=== PATIENT | male | born 1960 | race Caucasian/White ===

== ENCOUNTER 2017-07-14 15:34 | Emergency (ER) | payer BC, OTHER ==
[2017-07-14] MEDS ORDERED: HYDROmorphone 1 MG/ML Syringe IM ONE (16:37)
[2017-07-14] MEDS ORDERED: HYDROmorphone 1 MG/ML Syringe ONE (16:39)
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
--- NOTE | 2017-07-16 09:10 | CR ---
Tibia Fibula Lt HISTORY: injury FINDINGS: The fibula demonstrates a comminuted fracture of the diaphysis at about the junction of the mid and distal thirds. There are displaced fragments and mild overall lateral displacement with slig ht lateral angulation. There is accompanying transverse fracture of the diaphysis of the left tibia. This is displaced posterior laterally approximately 1 cm with slight lateral angulation. There is als o nondisplaced spiral fracture of the proximal to mid diaphysis left tibia. IMPRESSION: Acute fractures left tibia and fibula as above.
== END 2017-07-14 17:20 | disposition other institution (70) ==
LOC: JP.ED 15:34
DX: S82.452A Displaced comminuted fracture of shaft of left fibula, initial encounter for closed fracture (principal); S82.222A Displaced transverse fracture of shaft of left tibia, initial encounter for closed fracture; I10 Essential (primary) hypertension; Z87.891 Personal history of nicotine dependence; W17.89XA Other fall from one level to another, initial encounter
CPT/HCPCS: 29505; 73590; 96374; 99284; J1170

== ENCOUNTER 2020-10-13 22:36 | Emergency (ER) | payer BC, OTHER ==
[2020-10-13] MEDS ORDERED: Ketorolac 60 MG/2 ML SDV IM ONE (23:00)
--- NOTE | 2020-10-13 23:13 | EDM.PDOC ---
ED HPI GENERAL MEDICAL PROBLEM - General Chief Complaint: Headache Stated Complaint: MIGRAINE Time Seen by Provider: 10/13/20 22:55 Source of Information: Reports: Patient, Family, RN Notes Reviewed History Limitations: Reports: No Limitations - History of Present Illness INITIAL COMMENTS - FREE TEXT/NARRATIVE: 60-year-old gentleman presents emergency department a complaint of headache, he states he had a headache yesterday little bit of runny nose none resolved headache returned today he feels like he has sinus pressure and congestion no fevers no nausea vomiting no difficulty breathing, he did try aspirin and 500 mg of Tylenol with no relief - Related Data Allergies Allergy/AdvReac Type Severity Reaction Status Date / Time No Known Allergies Allergy Verified 10/13/20 22:47 Home Meds: Home Meds NK [No Known Home Meds] 07/14/17 [History] Past Medical History HEENT History: Reports: Impaired Vision Cardiovascular History: Reports: Hypertension Musculoskeletal History: Reports: None - Past Surgical History Head Surgeries/Procedures: Reports: None HEENT Surgical History: Reports: None Cardiovascular Surgical History: Reports: None GI Surgical History: Reports: Hernia Repair/Other Musculoskeletal Surgical History: Reports: Other (See Below) Other Musculoskeletal Surgeries/Procedures:: left leg Dermatological Surgical History: Reports: None Social & Family History - Tobacco Use Tobacco Use Status *Q: Never Tobacco User Second Hand Smoke Exposure: No - Caffeine Use Caffeine Use: Reports: Coffee - Alcohol Use Days Per Week of Alcohol Use: 7 Number of Drinks Per Day: 1 Total Drinks Per Week: 7 - Recreational Drug Use Recreational Drug Use: No ED ROS GENERAL - Review of Systems Review Of Systems: See Below Constitutional: Reports: No Symptoms HEENT: Reports: Rhinitis Respiratory: Reports: No Symptoms Cardiovascular: Reports: No Symptoms GI/Abdominal: Reports: No Symptoms Neurological: Reports: Headache - Physical Exam Exam: See Below Text/Narrative:: No frontal or maxillary tenderness to palpation Exam Limited By: No Limitations General Appearance: Alert, WD/WN, No Apparent Distress Eye Exam: Bilateral Eye: Normal Inspection Ears: Normal External Exam, Normal Canal, Hearing Grossly Normal, Normal TMs Nose: Normal Inspection, Normal Mucosa, No Blood Throat/Mouth: Normal Inspection, Normal Lips, Normal Teeth, Normal Gums, Normal Oropharynx, Normal Voice, No Airway Compromise Head Exam: Atraumatic, Normocephalic Neck: Normal Inspection, Supple, Non-Tender, Full Range of Motion Respiratory/Chest: No Respiratory Distress Course - Vital Signs Last Recorded V/S: Last Vital Signs Temp 97.7 F 10/13/20 22:48 Pulse 78 10/13/20 22:48 Resp 16 10/13/20 22:48 BP 172/82 H 10/13/20 22:48 Pulse Ox 96 10/13/20 22:48 - Orders/Labs/Meds Meds: Medications Discontinued Medications Generic Name Dose Route Start Last Admin Trade Name Jeanmarie PRN Reason Stop Dose Admin Ketorolac Tromethamine 60 mg 10/13/20 23:00 10/13/20 23:04 Toradol IM 10/13/20 23:01 60 mg ONETIME ONE Administration Departure - Departure Time of Disposition: 23:54 Disposition: Home, Self-Care 01 Condition: Fair Clinical Impression: Sinusitis Qualifiers: Sinusitis location: frontal Chronicity: acute Recurrence: non-recurrent Qualified Code(s): J01.10 - Acute frontal sinusitis, unspecified - Discharge Information Instructions: Sinusitis, Adult, [id number] Referrals: PCP,None [Primary Care Provider] - Forms: ED Department Discharge Additional Instructions: Take full course of antibiotics, please followup with your primary care pr ovider in 3-5 days if not better, please call return to the emergency department with worsening of symptoms. Sepsis Event Note (ED) - Evaluation Sepsis Screening Result: No Definite Risk - Focused Exam Vital Signs: Vital Signs Temp Pulse Resp BP Pulse Ox 10/13/20 22:48 97.7 F 78 16 172/82 H 96 10/13/20 22:46 97.7 F 78 16 172/82 H 96 - Assessment/Plan Plan: Assessment Acuity = acute Site and laterality = sinusitis Etiology = unknown Manifestations = frontal headache Location of injury = Home Lab values = none Plan Some relief with the Toradol injection from the ED prescription written for amoxicillin 500 mg p.o. 3 times daily x7 days follow-up primary care 3 to 5 days if not better This note was dictated using [employer] voice recognition software please call with any questions on syntax or grammar.
== END 2020-10-14 00:01 | disposition home or self-care (01) ==
LOC: JP.ED 22:36
DX: J01.10 Acute frontal sinusitis, unspecified (principal); I10 Essential (primary) hypertension
CPT/HCPCS: 96372; 99282; J1885; 99283